=== PATIENT | male | born 1975 | race Caucasian/White ===

== ENCOUNTER 2019-12-01 15:27 | Emergency (ER) | payer OTHER ==
[~2019-12-01] VITALS: Ht 175.3 cm; Wt 68.9 kg
== END 2019-12-01 19:36 | disposition home or self-care (01) ==
LOC: ER 15:27
DX: B33.8 Other specified viral diseases (principal); B96.0 Mycoplasma pneumoniae [M. pneumoniae] as the cause of diseases classified elsewhere

== ENCOUNTER 2024-06-09 07:15 | Outpatient (CLI) | payer OTHER | END 2024-06-09 07:37 | disposition home or self-care (01) | LOC: MRI 07:15 | PROVIDERS: ATTEND Anesthesiology | DX: G89.4 Chronic pain syndrome (principal); M47.817 Spondylosis without myelopathy or radiculopathy, lumbosacral region; M54.50 Low back pain, unspecified | CPT/HCPCS: 72141; 72148 ==

== ENCOUNTER 2025-04-21 07:28 | Outpatient (CLI) | payer OTHER | END 2025-04-21 07:30 | disposition home or self-care (01) | LOC: RAD 07:28 | PROVIDERS: ATTEND Specialist | DX: M51.360 Other intervertebral disc degeneration, lumbar region with discogenic back pain only (principal); M48.14 Ankylosing hyperostosis [Forestier], thoracic region; M40.05 Postural kyphosis, thoracolumbar region; M47.896 Other spondylosis, lumbar region ==